=== PATIENT | female | born 1950 | race Caucasian/White ===

== ENCOUNTER 2017-08-23 16:36 | Emergency (ER) | payer MEDICARE, OTHER ==
[~2017-08-23] VITALS: Ht 165.1 cm; Wt 90.7 kg
[2017-08-23] MEDS ORDERED: Aspir 8181 MG (16:50)
[2017-08-23] MEDS ORDERED: CLON1 (16:50)
[2017-08-23] MEDS ORDERED: ATEN50 (16:50)
[2017-08-23] MEDS ORDERED: DOCU100 (16:51)
[2017-08-23] MEDS ORDERED: METF500C (16:51)
[2017-08-23] MEDS ORDERED: ESCI20 (16:51)
[2017-08-23] MEDS ORDERED: NUEDEXTA 20-101 EACH (16:52)
[2017-08-23] MEDS ORDERED: NAMZARIC 28 MG1 EACH (16:52)
[2017-08-23] MEDS ORDERED: VITAMIN D32000 UNIT (16:53)
== END 2017-08-23 17:09 | disposition home or self-care (01) ==
LOC: ER 16:36
DX: R39.9 Unspecified symptoms and signs involving the genitourinary system (principal)
CPT/HCPCS: 99283

== ENCOUNTER → 2017-09-05 | Outpatient (CLI) | payer MEDICARE, OTHER ==
[~2017-09-05] MED LIST: ATEN50; Aspir 8181 MG; CLON1; DOCU100; ESCI20; METF500C; NAMZARIC 28 MG1 EACH; NUEDEXTA 20-101 EACH; VITAMIN D32000 UNIT
== END | disposition home or self-care (01) ==
LOC: LAB SHORT 15:29 → OLS 15:29
PROVIDERS: Nurse Practitioner Women's Health
DX: Z12.4 Encounter for screening for malignant neoplasm of cervix (principal)
CPT/HCPCS: 87624; G0123

== ENCOUNTER → 2018-08-17 | Outpatient (CLI) | payer MEDICARE, OTHER ==
[2018-08-19 14:08] LABS: Source, Urine Clean Catch
[2018-08-19 14:48] LABS: Bilirubin, Urine Neg (Neg); Blood, Urine Neg (Neg); Glucose Qualitative, Urine Neg (Neg); Ketones, Urine Neg (Neg); Leukocyte Esterase, Urine Neg (Neg); Nitrite, Urine Neg (Neg); Protein, Urine 1+ (Neg); Specific Gravity, Urine 1.025 (1.003-1.022); Urobilinogen, Urine NORM (Normal)
[2018-08-19 15:03] LABS: Appearance, Urine Clear (Clear); Color, Urine Yellow (P-Yellow)
== END | disposition home or self-care (01) ==
LOC: LAB SHORT 14:06 → LAB 14:06
PROVIDERS: Nurse Practitioner Family
DX: N39.0 Urinary tract infection, site not specified (principal)
CPT/HCPCS: 81003

== ENCOUNTER → 2018-09-11 | Outpatient (CLI) | payer MEDICARE, OTHER ==
[2018-09-13 14:06] LABS: HPV 16 Negative (Negative); HPV 18 Negative (Negative); HPV OTHER HR TYPES Negative (Negative)
== END | disposition home or self-care (01) ==
LOC: LAB 18:36 → LAB SHORT 18:36
PROVIDERS: Nurse Practitioner Women's Health
DX: Z12.4 Encounter for screening for malignant neoplasm of cervix (principal); Z91.89 Other specified personal risk factors, not elsewhere classified
CPT/HCPCS: 87624; G0123

== ENCOUNTER → 2019-03-19 | Outpatient (CLI) | payer MEDICARE, OTHER ==
[2019-03-20 14:41] LABS: Bilirubin, Urine Neg (Neg); Blood, Urine Neg (Neg); Glucose Qualitative, Urine Neg (Neg); Ketones, Urine Neg (Neg); Leukocyte Esterase, Urine Neg (Neg); Nitrite, Urine Neg (Neg); Protein, Urine Neg (Neg); Specific Gravity, Urine 1.005 (1.003-1.022); Urobilinogen, Urine NORM (Normal)
[2019-03-20 15:14] LABS: Appearance, Urine Clear (Clear); Color, Urine No Color (P-Yellow)
== END | disposition home or self-care (01) ==
LOC: LAB 13:15 → LAB SHORT 13:15
PROVIDERS: Nurse Practitioner Family
DX: N39.0 Urinary tract infection, site not specified (principal)
CPT/HCPCS: 81003